=== PATIENT | male | born 1975 | race Caucasian/White ===

== ENCOUNTER 2017-03-31 18:30 | Emergency (ER) | payer OTHER ==
[~2017-03-31 18:30] MED LIST: GLU500 PO
[2017-03-31 19:27] VITALS: BP 125/67
== END 2017-03-31 19:27 | disposition home or self-care (01) ==
LOC: ED 18:30
DX: S16.1XXA Strain of muscle, fascia and tendon at neck level, initial encounter (principal); M54.5 Low back pain; I10 Essential (primary) hypertension; E11.9 Type 2 diabetes mellitus without complications; Z79.84 Long term (current) use of oral hypoglycemic drugs; V49.9XXA Car occupant (driver) (passenger) injured in unspecified traffic accident, initial encounter; Y93.89 Activity, other specified; Y92.89 Other specified places as the place of occurrence of the external cause; Y99.8 Other external cause status

== ENCOUNTER 2018-11-30 19:07 | Emergency (ER) | payer MEDICAID ==
[~2018-11-30] VITALS: Ht 175.3 cm; Wt 99.8 kg
[2018-11-30 19:18] VITALS: Ht 175.3 cm; Wt 99.8 kg
[2018-11-30 21:09] VITALS: BP 146/90
== END 2018-11-30 21:09 | disposition home or self-care (01) ==
LOC: ED 19:07
DX: S93.402A Sprain of unspecified ligament of left ankle, initial encounter (principal); M25.512 Pain in left shoulder; I10 Essential (primary) hypertension; E11.9 Type 2 diabetes mellitus without complications; X50.1XXA Overexertion from prolonged static or awkward postures, initial encounter; Y93.89 Activity, other specified; Y92.89 Other specified places as the place of occurrence of the external cause; Y99.8 Other external cause status
CPT/HCPCS: J1885